=== PATIENT | female | born 1980 | race Caucasian/White ===

== ENCOUNTER 2019-05-18 11:16 | Emergency (ER) | payer MEDICARE, MEDICAID ==
[~2019-05-18] VITALS: Ht 172.7 cm; Wt 60.3 kg
--- NOTE | 2019-05-18 11:17 | NUR ---
Patient to ER bed 4 to gown for evaluation. Side rails up.
--- NOTE | 2019-05-18 11:20 | NUR ---
39 year old patient was brought in by mother to ER for onset of unknown abd pain. mother stated that patient was guarding abdominal area, and walking oddly. mother brought patient to er for evaluation. Pt is non-verbal according to mother and has mentation of 8 y/o. mother assisted with assesment. pt is otherwise normal per mother, no trauma noted. Pt denies CP, N/V, SOB at this time. pt changed into gown and resting in bed waiting for MD Resendez. will continue to monitor
[2019-05-18 11:29] VITALS: BP_SYST 128
[2019-05-18] MEDS ORDERED: NACL 0.9% 1,000 ML IV ONE (11:33)
--- NOTE | 2019-05-18 11:45 | NUR ---
Dr Issa at bedside examining patient
[2019-05-18 12:06] LABS: BILIRUBIN,URINE NEGATIVE (NEGATIVE); BLOOD, URINE NEGATIVE (NEGATIVE); CLARITY/URINE CLEAR (CLEAR); COLOR,URINE YELLOW (YELLOW); GLUCOSE,URINE TRACE (NEGATIVE); KETONES,URINE TRACE (NEGATIVE); LEUKOCYTE ESTERASE ,URINE NEGATIVE (NEGATIVE); NITRITE, URINE NEGATIVE (NEGATIVE); PROTEIN URINE NEGATIVE (NEGATIVE)
[2019-05-18 12:08] LABS: BASOPHILS % (AUTO) 0.7 % (0.0-2.0); EOSINOPHILS % (AUTO) 0.7 % (0.0-4.0); HEMATOCRIT 42.7 % (36-48); HEMOGLOBIN 14.3 g/dL (12.0-16.0); LYMPHOCYTES # (AUTO) 1.3 K/uL (1.0-5.5); LYMPHOCYTES % (AUTO) 19.8 % (20.5-51.5); MEAN CORPUSCULAR HEMOGLOBIN 28 pg (27-31); MEAN CORPUSCULAR HGB CONC 34 % (32-36); MEAN CORPUSCULAR VOLUME 83 fL (79.0-98.0); MONOCYTES # (AUTO) 0.4 K/uL (0.0-1.0); MONOCYTES % (AUTO) 6.4 % (1.7-9.3); NEUTROPHILS # (AUTO) 4.7 K/uL (1.8-7.7); NEUTROPHILS % (AUTO) 72.4 % (40.0-70.0); PLATELET COUNT (AUTO) 250 K/uL (130-430); RED BLOOD CELL COUNT(AUTO) 5.18 MIL/uL (4.2-6.2); RED CELL DISTRIBUTION WIDTH 13.9 % (9.0-15.0); WHITE BLOOD COUNT (AUTO) 6.5 K/uL (4.8-10.8)
[2019-05-18 12:31] LABS: CALCIUM 9.5 mg/dL (8.4-11.0); CREATININE 0.63 mg/dL (0.55-1.30)
[2019-05-18 12:39] LABS: PROTHROMBIN TIME 10.5 SECS (9.5-12.5)
[2019-05-18 12:46] LABS: ALBUMIN 3.9 g/dL (3.4-4.8); TOTAL BILIRUBIN 0.3 mg/dL (0.0-1.0)
--- NOTE | 2019-05-18 13:20 | NUR ---
Pt A&Ox4, VSS , respirations even and unlabored
[2019-05-18 13:54] LABS: AMYLASE 51 U/L (0-100); LIPASE 184 U/L (73-393)
[2019-05-18 15:33] VITALS: BP_SYST 128
--- NOTE | 2019-05-18 15:34 | NUR ---
Patient given written and verbal discharge instructions and verbalizes understanding. ER MD discussed with patient the results and treatment provided. Patient in stable condition. ID arm band removed. IV catheter removed intact and dressing applied, no active bleeding. Rx of Fleet enema and colace given. Patient educated on pain management and to follow up with PMD. Pain Scale 0/10. Opportunity for questions provided and answered. Medication side effect fact sheet provided.
== END 2019-05-18 15:34 | disposition home or self-care (01) ==
LOC: SED 11:16
DX: K59.00 Constipation, unspecified (principal); M79.89 Other specified soft tissue disorders
CPT/HCPCS: 36415; 71045; 80053; 81003; 82150-TC; 82550-TC; 83605; 83690-TC; 83880; 84484; 85025; 85610-TC; 85730-TC; 87040-TC; 93005; 96365; 96375; 99284